=== PATIENT | male | born 1990 | race Two or more races ===

== ENCOUNTER 2025-08-18 13:30 | Emergency (ER) | payer BC, SELFPAY ==
[2025-08-18 13:43] VITALS: BP 170/100; PULSE 84; RESP 20; TEMP 36.8; O2SAT 97; BMI 51.7
--- NOTE | 2025-08-18 13:46 | XR_ITS ---
Examination: CT abdomen and pelvis without contrast. Coronal 3-D reconstructions. Sagittal 2-D reconstructions. Date and time of exam:August 18, 2025 1435 hours INDICATIONS: Burning sensation with urination today CTDI: vol (mGy): 18.3 DLP: (mGycm): 1403 Technique: Axial images of the abdomen have been obtained, 3 mm slice thickness Intravenous contrast material has not been administered. Low dose protocols were performed. One or more of the following dose reduction techniques were used; automated exposure control, adjustment of the mA and/or KV according to patient size, use of iterative reconstruction technique. Findings: No focal liver or splenic lesions No gallstones No pancreatic or adrenal mass No renal or ureteral calculi, no hydronephrosis Normal appendix No bowel obstruction Scattered colonic diverticulosis Minimal thickening of urinary bladder wall up to 5 mm No prostatomegaly IMPRESSION: No renal or ureteral calculi Mild bilateral renal parenchymal scar formation Normal appendix Mild cystitis pattern
--- NOTE | 2025-08-18 13:47 | PD.EDRME ---
Rapid Medical Screening Exam RME Arrival date/time: 08/18/25 13:30 35-year-old male presents to the Emergency Department today for complaints of frequent urination and dysuria Chief Complaint: Urogenital-Male Vital signs: Vital Signs Temperature 98.2 F 08/18/25 13:43 Pulse Rate 84 08/18/25 13:43 Respiratory Rate 20 08/18/25 13:43 Blood Pressure 170/100 H 08/18/25 13:43 Pulse Oximetry (%) 97 08/18/25 13:43 Oxygen Delivery Method Room Air 08/18/25 13:43
[2025-08-18 13:58] LABS: Collection Type, Urine Clean Catch
[2025-08-18 14:13] LABS: Bacteria,Urine Rare; Bilirubin,Urine Negative (Negative); Blood,Urine Negative (Negative); Clarity,Urine Clear (Clear/Hazy); Color,Urine Yellow (Lt Yel-Yel); Culture Indicated,Urine Not Indicated; Glucose, Urine Negative (Negative); Ketones,Urine Negative (Negative); Leukocyte Esterase,Urine Negative (Negative); Nitrite,Urine Negative (Negative); PH,Urine 7.5 (5.0-7.0); Protein,Urine Negative (Neg - Trace); RBC,Urine 5 /hpf (0-3); Specific Gravity,Urine 1.022 (1.001-1.035); Squamous Epithelial Cell,Urine 1 /hpf (0-5); Urobilinogen,Urine Negative mg/dL (0.0-1.0); WBC,Urine 2 /hpf (0-5)
[2025-08-18 14:20] LABS: Basophils # (Auto) 0.0 Thou/mm3 (0.0-0.2); Basophils % (Auto) 0 % (0-2.5); Eosinophils # (Auto) 0.1 Thou/mm3 (0.0-0.5); Eosinophils % (Auto) 1 % (0-10); Hematocrit 44.6 % (41.0-53.0); Hemoglobin 14.9 g/dL (13.5-16.0); Immature Granulocytes Auto 0.02 Thou/mm3 (0.00-0.00); Lymphocytes # (Auto) 1.6 Thou/mm3 (1.0-4.8); Lymphocytes % (Auto) 22 % (10-50); Mean Corpuscular HGB Conc 33.4 g/dl (31.0-37.0); Mean Corpuscular Hemoglobin 28.6 pg (25.0-35.0); Mean Corpuscular Volume 86 fL (80-100); Monocytes # (Auto) 0.5 Thou/mm3 (0.0-0.8); Monocytes % (Auto) 7 % (0-12); Neutrophils # (Auto) 4.9 Thou/mm3 (1.8-7.7); Neutrophils % (Auto) 69 % (37-80); Nucleated Red Blood Cell # 0.00 Thou/mm3 (0.00-0.00); Nucleated Red Blood Cell % 0 /100 WBC (0); Platelet Count 214 Thou/mm3 (140-440); RDW Standard Deviation 39.4 fL (35.1-43.9); Red Blood Count 5.21 Miln/mm3 (4.50-5.90); White Blood Count 7.2 Thou/mm3 (3.8-10.6)
[2025-08-18 14:44] LABS: Alanine Aminotransferase 20 U/L (10-49); Albumin, Serum 4.6 gm/dL (3.5-5.0); Albumin/Globulin Ratio 1.5 (1.2-2.2); Alkaline Phosphatase 77 U/L (46-116); Anion Gap 8 (7-16); Aspartate Amino Transferase 17 U/L (0-34); BUN/Creatinine Ratio 11 Ratio (12-20); Bilirubin,Total 0.4 mg/dL (0.3-1.2); Blood Urea Nitrogen 10 mg/dL (9-23); Calcium 9.9 mg/dL (8.3-10.6); Calcium (Corrected) 9.9 mg/dL (8.5-10.1); Carbon Dioxide 29.1 mMol/L (20.0-31.0); Chloride 103 mMol/L (98-107); Creatinine (Component) 0.9 mg/dL (0.6-1.3); Estimated Creatinine Clearance 164.9 mL/min (>60); Globulin 3.0 gm/dL (2.3-3.5); Glucose 111 mg/dL (74-106); Osmolality,Calculated 279 (275-295); Potassium 4.3 mMol/L (3.4-5.1); Sodium 140 mMol/L (136-145); Total Protein 7.6 gm/dL (5.7-8.2); eGFR > 60 See Note
[2025-08-18 15:30] LABS: Glucose Estimated Average 105 mg/dL (80-131); Hemoglobin A1C 5.3 % Hgb (4.8-6.0)
--- NOTE | 2025-08-18 16:44 | PD.EDMALE ---
ED Male Genitalurinary RME/HPI General Chief complaint: Urogenital-Male Stated complaint: LOWER ABD PAIN, DIFFICULTY URINATING, DYSURIA Time Seen by Provider: 08/18/25 14:31 Arrival date/time: 08/18/25 13:30 RME / HPI RME / HPI Narrative: 35-year-old male presents to the Emergency Department today for complaints of frequent urination and dysuria. This been ongoing for the last 2 days, it only happen early in the morning. Denies any fever denies any vomiting denies any other complaints. Related Data Home Medications ?Medication ?Instructions ?Recorded ?Confirmed atenolol 50 mg tablet (Tenormin) 50 mg PO QAM #0 tabs 01/03/16 fluconazole 200 mg tablet 200 mg PO QWEEK #0 tabs 01/03/16 (Diflucan) metformin 500 mg tablet 500 mg PO BIDAC #0 tabs 01/03/16 (Glucophage) Previous Rx's ?Medication ?Instructions ?Recorded phenazopyridine 200 mg tablet 200 mg PO TID PRN pain 6 doses #6 08/18/25 (Pyridium) tabs Allergies Allergy/AdvReac Type Severity Reaction Status Date / Time No Known Allergies Allergy Verified 08/18/25 13:33 Review of Systems Review of Systems Narrative Review of Systems: Review of system reviewed and within normal limits except mentioned in HPI ED Exam Narrative Physical exam: VITAL SIGNS: Reviewed. GENERAL APPEARANCE: Alert and interactive, follows commands, no acute distress, HEAD AND FACE: Non-traumatic. ENT: PERRL, pink conjunctivitis, eyelid no trauma, Mucous membrane moist. NECK: Supple, nontender, no nuchal rigidity. CHEST: No tenderness, no crepitus, no paradoxical movement, no retractions. LUNGS: Clear, well ventilated, symmetric, no rales, no wheezing, no ronchi, no stridor, good breath sounds bilaterally. HEART: Regular rate, regular rhythm, no murmur, no gallops. ABDOMEN: Soft, positive bowel sounds, nondistended, no guarding, nontender, no rebound, no masses, RECTAL: Deferred. GENITAL: Deferred. NEUROLOGICAL: Gross motor function intact sensory function intact, Appropriate for age. MUSCULOSKELETAL: low back nontender, full range of motion. EXTREMITIES: Nontender, full range of motion. SKIN: Color pink, dry, no rash, no lacerations, no abrasions, no contusions. LYMPHATICS: Deferred. Course Quality Measures none Orders Category Date Time Status CT abdomen pelvis wo con Stat Exams 08/18/25 13:46 Completed A1C [Glycohemoglobin w (eAG)] Stat Lab 08/18/25 14:05 Completed CBC Stat Lab 08/18/25 14:05 Completed Comprehensive Metabolic Panel Stat Lab 08/18/25 14:05 Completed UA, C/S IF [Urinalysis, C/S if Indicated] Stat Lab 08/18/25 13:53 Completed Vital Signs Vital signs: Vital Signs Temperature 98.2 F 08/18/25 13:43 Pulse Rate 84 08/18/25 13:43 Respiratory Rate 20 08/18/25 13:43 Blood Pressure 170/100 H 08/18/25 13:43 Pulse Oximetry (%) 97 08/18/25 13:43 Oxygen Delivery Method Room Air 08/18/25 13:43 Urogenital - Male MDM Narrative MDM Narrative:: 35-year-old male presents to the Emergency Department today for complaints of frequent urination and dysuria. This been ongoing for the last 2 days, it only happen early in the morning. Denies any fever denies any vomiting denies any other complaints. CT scan of the abdomen pelvis came back unremarkable. I did not notice any kidney stone. No acute pathology noted. Laboratory workup also showed slightly concentrated urine otherwise unremarkable no UTI. Patient stable for discharge home. Was advised to drink a lot of fluids which could be the reason for her dysuria. Or maybe the patient passed kidney stone that we cannot see it on CT scan right now. Patient data External records reviewed:: None Clinical information provided by:: patient and family Social determinants that could affect healthcare access:: none Patient has the following chronic illnesses:: Hypertension How is presenting disease/condition affected by chronic disease/condition?: uneffected by Evaluation data The following diagnostics were reviewed and interpreted by me:: lab results and radiology exam(s) Lab and/or radiology exams considered but not ordered:: None Interpretation Summary: See results and MDM Medications / Prescriptions Medications or Prescriptions considered but not ordered:: Plan Medication administrations:: None Consultations Consultation(s) initiated? (list below): No Diagnosis Urogenital Male Differential Diagnosis: urinary tract infection, prostatitis and other (Dysuria) Most likely diagnosis given after review of the tests above:: Dysuria Admission Indicated Admission indicated?: not indicated Admission Request Was there a request for admission?: No Disposition Plan Disposition Plan: Discharge Discharge Attestation Discharge Attestation: The patient and all family members were given an opportunity to ask questions and understood the discharge instructions. Discharge instructions specifically effects, indications for sooner follow up or return to the emergency department, and the expected course of current diagnosis. Patient condition: Stable Discharge Plan Plan Patient Disposition: HOME (Self Care) Discharge Disposition comment: Stable Prescriptions/Referrals Prescriptions/Med Rec: New phenazopyridine [Pyridium] 200 mg tablet 200 mg PO TID PRN (Reason: pain) Qty: 6 0RF No Action metformin [Glucophage] 500 MG tablet 500 mg PO BIDAC Qty: 0 fluconazole [Diflucan] 200 MG tablet 200 mg PO QWEEK Qty: 0 atenolol [Tenormin] 50 MG tablet 50 mg PO QAM Qty: 0 Referrals: Darius Morales [Primary Care Provider] - In 1 week Problem List Clinical Impression: Dysuria, Renal colic Patient/Caregiver Discharge Instructions Discharge Activity: activity as tolerated Education Materials: Dysuria Additional Instructions: Thank you for the opportunity for serving you today. You are stable for discharged . You are advised to: Follow-up with your PCP in 1 to 2 days Return to ED for worsening of symptoms Increase oral fluids, a lot of fluids Take medication as prescribed Print Language: Tuvaluan Stand Alone Forms: Libby Award Info., Patient Portal Info Letter MADDY/MIGUELITO Supervising Physician MADDY/MIGUELITO Supervising Physician: Dr Barker
== END 2025-08-18 17:56 | disposition home or self-care (01) ==
PROVIDERS: Nurse Practitioner Primary Care; Emergency Provider Family Medicine; PCP Physician Assistant
DX: N23 Unspecified renal colic (principal)
CPT/HCPCS: 36415; 74176; 80053; 81001; 83036; 85025; 99283